=== PATIENT | male | born 1955 | race Caucasian/White ===

== ENCOUNTER 2016-09-18 21:45 | Inpatient (IN) | payer BC, MEDICAID ==
[~2016-09-18] VITALS: Ht 175.3 cm; Wt 79.8 kg
--- NOTE | 2016-09-18 22:28 | NUR ---
REC'D A 61 Y/O M BIB FAMILY FOR C/C OF GEN WEAKNESS AND DRY THROAT. PT STS "I KEEP DRINKING A LOT OF WATER BUT I JUST FEEL SO DRY." PT SPEAKS IN A SOFT VOICE. PT AMBULATES WITH STEADY GAIT. SPEAKS IN CLEAR AND COMPLETE SENTENCES, RESPIRATIONS EVEN AND UNLABORED. AAOX4 .NO ACUTE/RESP DISTRESS. MSE COMPLETED BY DR ESPINOZA. PT CHANGED INTO GOWN AND ATTACHED TO PRE SALES NETWORK ENGINEER.
--- NOTE | 2016-09-18 22:29 | NUR ---
LAB AT BEDSIDE.
--- NOTE | 2016-09-18 22:39 | NUR ---
XRAY AT BEDSIDE.
[2016-09-18 22:47] LABS: UA SPECIFIC GRAVITY <=1.005 (1.005-1.035); microscopic required? YES; urine erythrocyte TRACE (NEGATIVE)
[2016-09-18 22:49] LABS: BASOPHIL % 0.3 % (0-2); RED CELL DISTRIBUTION WIDTH 14.3 % (11.5-14.5)
[2016-09-18 22:51] LABS: PLATELET COUNT 45 x10^3mcL (130-400)
[2016-09-18 23:00] LABS: CALCIUM 9.5 mg/dL (8.5-10.1); CARBON DIOXIDE 29.2 mmol/L (21-32); CREATININE SERUM 1.6 mg/dL (0.7-1.3); POTASSIUM SERUM 4.6 mmol/L (3.5-5.1)
[2016-09-18 23:09] LABS: BILIRUBIN TOTAL 2.2 mg/dL (0.20-1.00); T4(THYROXINE) 7.4 ug/dL (4.7-13.3); TOTAL PROTEIN, SERUM 7.4 g/dL (6.4-8.2)
--- NOTE | 2016-09-18 23:11 | NUR ---
VERBAL ORDER FROM DR ESPINOZA TO HANG 1L NS FOR PTS HYPOTENSION. FLUIDS INFUSING WIDE OPEN TO R FOREARM AT THIS TIME.
[2016-09-18 23:13] LABS: CK-MB 0.9 ng/mL (0-3.6)
[2016-09-18 23:23] LABS: ALBUMIN 3.2 g/dL (3.4-5.0)
--- NOTE | 2016-09-18 23:41 | NUR ---
PT DOESN'T RECALL HTN MEDICATION. STS WILL BRING TOMORROW.
[2016-09-19] VITALS (8 sets, daily range): BP systolic 92–144; BP diastolic 53–77
--- NOTE | 2016-09-19 00:14 | NUR ---
REPORT GIVEN TO LIDIA
--- NOTE | 2016-09-19 00:50 | NUR ---
DR ALEXIS AT BEDSIDE.
[2016-09-19 01:17] LABS: MAGNESIUM 1.6 mg/dL (1.8-2.4); PHOSPHOROUS 3.5 mg/dL (2.5-4.9)
[2016-09-19 01:19] LABS: CHOLESTEROL 128 mg/dL (<200); CHOLESTEROL/HDL RATIO 5.8; HDL CHOLESTEROL 22 mg/dL (40-60); TRIGLYCERIDES 406 mg/dL (<150)
[2016-09-19 01:25] LABS: CALCIUM 8.9 mg/dL (8.5-10.1); CARBON DIOXIDE 23.8 mmol/L (21-32); CREATININE SERUM 1.4 mg/dL (0.7-1.3); POTASSIUM SERUM 4.3 mmol/L (3.5-5.1)
[2016-09-19 01:29] LABS: AMPHETAMINE QUAL UR NONE DETECTED (NEG <=1000)
--- NOTE | 2016-09-19 01:34 | NUR ---
RECEIVED PT FROM ED VIA [employer]. ORIENTED PT TO ROOM AND SURROUNDINGS. IV NOTED TO RFA PATENT AND INTACT. TELE [address] PT READING [address] INSTRUCTED PT ON THE USE OF CALL LIGHT FOR ASSISTANCE. ENDORSED PT TO PRIMARY NURSE LIDIA
--- NOTE | 2016-09-19 02:00 | NUR ---
RECEIVED PT FROM RESOURCE NURSE SURU. NO ACUTE DISTRESS. BLOOD SUGAR 548, DR ALEXIS INFORMED. NS BOLUS STARTED, RECEIVED ORDERS TO ADMINISTER INSULIN. WILL CONTINUE TO MONITOR.
--- NOTE | 2016-09-19 03:35 | NUR ---
BOLUS COMPLETED, BLOOD SUGAR 441. DR ALEXIS INFORMED. NO ACUTE DISTRESS. WILL CONTINUE TO MONITOR.
[2016-09-19 04:21] LABS: CALCIUM 8.7 mg/dL (8.5-10.1); CARBON DIOXIDE 23.8 mmol/L (21-32); CREATININE SERUM 1.3 mg/dL (0.7-1.3); POTASSIUM SERUM 3.7 mmol/L (3.5-5.1)
--- NOTE | 2016-09-19 05:56 | NUR ---
PT SLEPT PERIODICALLY THROUGHOUT NIGHT. NO ACUTE DISTRESS. ALL NEEDS MET AND ATTENDED TO. NO SIGNIFICANT CHANGES. IV PATENT AND INTACT. BED IN LOWEST POSITION, SIDE RAILS UP X2, SCDS IN PLACE, CALL LIGHT WITHIN REACH. WILL ENDORSE CARE TO ONCOMING NURSE.
--- NOTE | 2016-09-19 07:50 | NUR ---
RECEIVED PT IN BED ALERT AND ORIENTED X4. TELE #8, SB 48. DENIES CHEST PAIN. BREATHING EVEN AND UNLABORED ON RA, NO SOB, LUNG SOUNDS CLEAR. DENIES HEADACHE OR DIZZINESS. BP = 100/55. DENIES ABD PAIN OR N/V/D. VOIDS FREELY. AMBULATORY. SKIN CDI. REPORTS FATIGUE BUT STATES HE IS FEELING BETTER THAN LAST NIGHT. INSTRUCTED TO USE CALL LIGHT WHEN IN NEED OF ANY ASSISTANCE.
--- NOTE | 2016-09-19 12:00 | NUR ---
PT SEEN BY DR OSHEA AND HE SPOKE TO PT AND HIS .
[2016-09-19] MEDS ORDERED: NOR5 PO (12:03)
[2016-09-19] MEDS ORDERED: HYZAAR 100-251 EACH PO (12:03)
--- NOTE | 2016-09-19 16:02 | NUR ---
Initial Nutrition Assessment Dx: Severe Hyperglycemia PMHx: HTN, liver cirrhosis, hepatitis C (15 years, stopped taking Harvoni in August 2016) PSHx: None Labs: BG 449 H, BUN 20 H, Lactic Acid 2.2 H; (09/18) ALB 3.2 L, TBili 2.2 H, AST 44 H, Triglycerides 406 H, Amylase 132 H, Lipase 421 H, A1C 12.1 H, Ammonia 88 H Meds: Cephulac, Colace, D50%, Glucophage, Glucotrol, humulin R, mag-ox, Prilosec, NaCl IVF, theragran, zofran Current Diet Order: CCHO-60 gm PO Intakes: (09/19) L: 100% Ht: 68", 5' 8". Wt: 173 lb, 79 kg. BMI: 26 kg/m2 (Overweight) IBW: 154 lb, 70 kg. %IBW: 112%. UBW: 190 lb, 86 kg. Age: 61 Y/O M Food Allergies: None Skin: Intact. Mike 19. Edema: None noted GI: Abd soft, flat, active bowel sounds. Last BM 09/19. Pt found with hepatic encephalopathy ammonia 88 likely secondary to liver cirrhosis, new onset DM with A1C 12.1%, glucose 802 on admission per doctor's notes. Per [facility] Huddle reports, Dr. Delgado consulted. Pt was seen resting in bed with family at bedside. Pt reported good appetite, tolerated diet well, no issues. participated mostly in RD verbal interview. Problem with: N: None. V: None. D: None. C: None. Problems with: Chewing: None. Swallowing: None. Current Appetite: Good Recent Weight Change: -17 lb. % Weight Change: 8.9% weight loss within 1-2 months due to lack of appetite Vitamin/Supplement use: unable to specify vitamins, only reports pt eats vitamins and "joint juice" for joints Diet at Home: Regular; reports pt eats everything Physical Activity: None Education: RD provided nutrition education on DM to pt and . Pt mildly receptive, was very engaged and receptive. RD discussed portion control, carb counting, serving sizes, food/snack options, and handouts provided. DM class flyer was provided as well. acknowledged and verbalizes understanding of diet, will want to attend DM class, and attempt to start pt on the diet upon discharge. Estimated Nutritional Needs Based CBW 173 lb, 79 kg Energy: 6227-1704 kcal/day (25-30 kcal/kg for Maintenance) Protein: 79-95 gm/day (1-1.2 gm/kg for Liver Cirrhosis) Fluids: 2370 ml/day (30 ml/kg for Maintenance) or per doctor Nutrition Diagnosis 1. Altered nutrition related labs related to endocrine dysfunction, new onset DM as evidenced by elevated BG 449, A1C 12.1% 2. Unintentional weight loss related to lack of appetite as evidenced by 8.9% of weight loss within 1-2 months Intervention 1. Recommend CCHO-60 gm, 2 gm Na diet. 2. RD provided nutrition education to pt and family. 3. Follow up with outpatient RD/CDE upon discharge. Monitor/Evaluate Goal: PO intakes to meet at least 75% of estimated needs; Pt understand CCHO, 2 gm Na diet restrictions Monitor: PO intakes, tolerance to diet, labs, skin integrity, GI function F/U in 3-5 days as MODERATE risk (09/22-09/24)
--- NOTE | 2016-09-19 16:02 | NUR ---
1. Recommend CCHO-60 gm, 2 gm Na diet. 2. RD provided nutrition education to pt and family. 3. Follow up with outpatient RD/CDE upon discharge.
--- NOTE | 2016-09-19 17:23 | NUR ---
PT RESTING IN BED, NO COMPLAINTS OF PAIN OR DISCOMFORT. DISCHARGE WAS WITH PT AND PTS THIS AFTERNOON AND GAVE PT DM TEACING.
--- NOTE | 2016-09-19 19:30 | NUR ---
REC'D PT FROM DAY SHIFT NURSE. PT AAOX4, RESTING IN BED COMFORTABLY. DENIES ANY BOYD, DIZZINESS, PAIN OR DISCOMFORT AT THIS TIME. ON TELE # 8. NO SIGNS OF DISTRESS NOTED. BREATHING EVEN/UNLABORED. URINE LYTES/OSMO TO BE COLLECTED. CALL LIGHT WITHIN REACH, BED AT LOWEST POSITION. WILL CONTINUE TO MONITOR.
--- NOTE | 2016-09-20 02:31 | NUR ---
PT RESTING IN BED WITH EYES CLOSED. LAYING ON LEFT SIDE. NO SIGNS OF DISTRESS NOTED. BREATHING EVEN/UNLABORED. CALL LIGHT WITHIN REACH, BED AT LOWEST POSITION. WILL CONTINUE TO MONITOR.
--- NOTE | 2016-09-20 05:45 | NUR ---
TELE D/C PER ORDER. PT DENIES ANY CP, PALPITATIONS, PRESSURE, OR DIZZINESS.
--- NOTE | 2016-09-20 06:07 | NUR ---
PT RESTING IN BED COMFORTABLY. NO COMPLAINTS AT THIS TIME. BS 188, 3 UNITS REG INSULIN GIVEN. PT STARTED ON GLUCOTROL. NO SIGNS OF DISTRESS NOTED. REPORTS SLEEPING WELL LAST NIGHT AND FEELING BETTER. WILL COLLECT URINE LYTES/OSMOLALITYL ONCE PT URINATES THIS MORNING. CALL LIGHT WITHIN REACH, BED AT LOWEST POSITION. WILL ENDORSE TO DAY SHIFT NURSE.
[2016-09-20 06:09] LABS: BASOPHIL % 1.9 % (0-2); RED CELL DISTRIBUTION WIDTH 14.2 % (11.5-14.5)
[2016-09-20 06:49] LABS: CALCIUM 8.7 mg/dL (8.5-10.1); CHLORIDE SERUM 110 mmol/L (98-107); CREATININE SERUM 1.2 mg/dL (0.7-1.3); GFR1 > 60 mL/min; GLUCOSE SERUM 204 mg/dL (74-106); MAGNESIUM 1.5 mg/dL (1.8-2.4); PHOSPHOROUS 2.8 mg/dL (2.5-4.9); POTASSIUM SERUM 4.4 mmol/L (3.5-5.1); SODIUM SERUM 142 mmol/L (136-145)
[2016-09-20 06:54] VITALS: BP 116/63; BP 149/93
--- NOTE | 2016-09-20 07:51 | NUR ---
RECEIVED PT IN BED ALERT AND ORIENTED X4. DENIES ANY PAIN OR DISCOMFORT. BREATHING EVEN AND UNLABORED ON RA. DENIES ANY GI UPSET. VOIDS FREELY. AMBULATORY. NO EDEMA NOTED. SKIN CDI. INSTRUCTED TO USE CALL LIGHT WHEN IN NEED OF ANY ASSISTANCE.
[2016-09-20 09:53] VITALS: BP 118/66
[2016-09-20 10:03] LABS: PLATELET COUNT 23 x10^3mcL (130-400)
[2016-09-20] MEDS ORDERED: BG MC (11:36)
[2016-09-20] MEDS ORDERED: APAP/HYDROCODON1 T13 PO (11:36)
[2016-09-20] MEDS ORDERED: COL100 PO (11:36)
[2016-09-20] MEDS ORDERED: METFORMIN HCL1000 MG PO (11:37)
[2016-09-20] MEDS ORDERED: GLU5 PO (11:37)
[2016-09-20] MEDS ORDERED: LEVEMIR100 U/M1 SQ (11:37)
[2016-09-20] MEDS ORDERED: THERA TABS1 TAB PO (11:38)
[2016-09-20] MEDS ORDERED: LACTULOSE10 GM/152 PO (11:46)
--- NOTE | 2016-09-20 12:32 | NUR ---
PT COMPLAINING OF NAUSEA. ZOFRAN IVP GIVEN.
--- NOTE | 2016-09-20 14:25 | NUR ---
PT STILL COMPLAINING OF NAUSEA, STATES ZOFRAN DIDNT HELP. DR GAGNON MADE AWARE AND PHENERGAN IVP GIVEN ORDERED.
--- NOTE | 2016-09-20 17:02 | NUR ---
PT STILL COMPLAINING OF NAUSEA AND DIZZINESS. DID NOT EAT LUNCH AND STATES HE DOESNT HAVE APPETITE FOR DINNER. PTS CONCERNED ABOUT PT NOT EATING AND TAKING A LOT OF DIABETES MEDICATIONS. BLOOD SUGAR = 241. DR GAGNON MADE AWARE. WILL GIVE REGLAN ORDERED. PER DR GAGNON, OK TO HOLD REGULAR INSULIN AND JUST GIVE PO MEDS IF PT IS NO LONGER NAUSEOUS.
[2016-09-20 18:18] VITALS: BP 156/79
--- NOTE | 2016-09-20 19:20 | NUR ---
REC'D PT FROM DAY SHIFT NURSE. FAMILY AT BEDSIDE. PT RESTING IN BED, FEELING FATIGUED. DENIES DIZZINESS, NAUSEA, OR PAIN AT THIS TIME. C/O WEAKNESS AND URINARY FREQUENCY. PT HAD EPISODE OF BEING UNABLE TO HOLD URINE, VOIDED ON SELF AND FLOOR. CHANGED GOWN AND LINENS. AMBULATORY. NO SIGNS OF DISTRESS NOTED. BREATHING EVEN/UNLABORED. CALL LIGHT WITHIN REACH, BED AT LOWEST POSITION. WILL CONTINUE TO MONITOR.
--- NOTE | 2016-09-20 20:55 | NUR ---
TEMP 101.6. PT C/O WEAKNESS. DENIES NAUSEA OR PAIN AT THIS TIME. TYLENOL GIVEN PER ORDER. COOLING MEASURES INITIATED- AC TURNED ON, BLANKETS REMOVED, COLD COMPRESS APPLIED. WILL CONTINUE TO MONITOR.
[2016-09-20 21:34] VITALS: BP 112/53
--- NOTE | 2016-09-20 22:45 | NUR ---
RECHECKED TEMP 99.6. PT RESTING IN BED WITH EYES CLOSED. COLD COMPRESS IN PLACE, AC ON, AND BLANKETS LOWERED. WILL CONTINUE TO MONITOR.
--- NOTE | 2016-09-21 02:35 | NUR ---
TEMP 98.0. PT RESTING IN BED WITH EYES CLOSED. NO SIGNS OF DISTRESS NOTED. BREATHING EVEN/UNLABORED. CALL LIGHT WITHIN REACH, BED AT LOWEST POSITION. WILL CONTINUE TO MONITOR.
--- NOTE | 2016-09-21 06:16 | NUR ---
PT RESTING COMFORTABLY IN BED. AFEBRILE. DENIES DIZZINESS, NAUSEA, OR ANY DISCOMFORT. REPORTS NOT VOIDING FREQUENTLY TONIGHT AND FEELING BETTER. BS 198, 3 UNITS REG INSULIN GIVEN. NO SIGNS OF DISTRESS NOTED. BREATHING EVEN/UNLABORED. NO SIGNIFICANT CHANGES DURING SHIFT. WILL ENDORSE TO DAY SHIFT NURSE.
[2016-09-21 06:35] VITALS: BP 106/58
[2016-09-21 06:41] LABS: CARBON DIOXIDE 22.7 mmol/L (21-32); CREATININE SERUM 1.6 mg/dL (0.7-1.3); MAGNESIUM 1.6 mg/dL (1.8-2.4); PHOSPHOROUS 3.7 mg/dL (2.5-4.9); POTASSIUM SERUM 4.4 mmol/L (3.5-5.1)
[2016-09-21 07:00] LABS: BASOPHIL % 0 % (0-2); RED CELL DISTRIBUTION WIDTH 15.3 % (11.5-14.5)
--- NOTE | 2016-09-21 07:30 | NUR ---
PATIENT IS IN BED AWAKE ALERT AND ORIENTED. DENIES ANY PAIN OR DISCOMOFRT. HL PATENT, FLUSHED WELL. RESP EVEN AND UNLABORED, LUNGS CLEAR ON ROOM AIR. AMBULATES AD MALISSA. SKIN INTACT. ABD SOFT BOWEL SOUNDS ACTIVE. NO EDEMA NOTED, SCD'S IN PLACE. WILL CONTINUE TO MONITOR.
--- NOTE | 2016-09-21 08:10 | NUR ---
DR GARCIA AND MEDICAL TEAM INTO SEE PAIENT AND DISCUSS PLAN OF CARE.
[2016-09-21 09:19] VITALS: BP 103/52
[2016-09-21 12:11] LABS: PLATELET COUNT 24 x10^3mcL (130-400)
--- NOTE | 2016-09-21 12:20 | NUR ---
PATIENT'S MG LEVEL 1.6 THIS AM. MG ROSY GIVEN BY DARLYN COELLO ORDERED. PATIENT HAS BEEN OOB AMBULTING IN THE HALLWAYS AND USING I.S. INSTRUCTED. SITTING UP IN BED WATCHING TV AT THIS TIME.
--- NOTE | 2016-09-21 18:10 | NUR ---
PATIENT REMAINS IN BED WITH SPOUSE AT BEDSIDE. PER PATIENT HE IS HAVING LOOSE STOOLS FROM THE LACTULOSE. HL PATENT. AMBULATES IN THE HALLWAYS AD MALISSA. USING I.S. INTRUCTED. NO C/O PAIN THIS SHIFT. WILL CONTINUE TO MONITOR.
[2016-09-21 18:41] VITALS: BP 113/60
--- NOTE | 2016-09-21 20:01 | NUR ---
PT CURRENTLY RESTING IN BED, IN NO ACUTE DISTRESS. A/O X4. NO TELE, MED/SURG. DENIES CHEST PAIN. PULSES PALPABLE IN ALL EXTREMITIES, NO EDEMA NOTED. LUNG SOUNDS CTA BILATERALLY. BOWEL SOUNDS ACTIVE, LAST BM 09/21/16, DIARRHEA. VOIDING WELL. MILD GENERALIZED WEAKNESS NOTED. SKIN INTACT. DENIES PAIN AT THIS TIME. IV PATENT AND INTACT. BED IN LOWEST POSITION, SIDE RAILS UP X2, SCDS IN PLACE, CALL LIGHT WITHIN REACH. WILL CONTINUE TO MONITOR.
[2016-09-21 21:29] VITALS: BP 107/53
--- NOTE | 2016-09-22 00:17 | NUR ---
PT CURRENTLY RESTING IN BED, NO ACUTE DISTRESS. TEMP 98.4 POST COOLING MEASURES. WILL CONTINUE TO MONITOR.
[2016-09-22 05:54] VITALS: BP 121/68
--- NOTE | 2016-09-22 06:09 | NUR ---
PT SLEPT PERIODICALLY THROUGHOUT NIGHT. NO ACUTE DISTRESS. ALL NEEDS MET AND ATTENDED TO. NO SIGNIFICANT CHANGES. MEDICATED PAIN PER EMAR. IV PATENT AND INTACT. BED IN LOWEST POSITION, SIDE RAILS UP X2, SCDS IN PLACE, CALL LIGHT WITHIN REACH. WILL ENDORSE CARE TO ONCOMING NURSE.
[2016-09-22 06:28] LABS: CALCIUM 9.1 mg/dL (8.5-10.1); CARBON DIOXIDE 23.5 mmol/L (21-32); CHLORIDE SERUM 107 mmol/L (98-107); CREATININE SERUM 1.2 mg/dL (0.7-1.3); GFR1 > 60 mL/min; GLUCOSE SERUM 169 mg/dL (74-106); MAGNESIUM 1.9 mg/dL (1.8-2.4); PHOSPHOROUS 2.5 mg/dL (2.5-4.9); POTASSIUM SERUM 4.1 mmol/L (3.5-5.1); SODIUM SERUM 139 mmol/L (136-145)
[2016-09-22 06:56] LABS: BASOPHIL % 0.1 % (0-2)
[2016-09-22 07:00] LABS: RED CELL DISTRIBUTION WIDTH 15.5 % (11.5-14.5)
[2016-09-22 07:02] LABS: PLATELET COUNT 18 x10^3mcL (130-400)
--- NOTE | 2016-09-22 07:30 | NUR ---
RECEIVED PT IN BED ALERT AND ORIENTED X4. DENIES ANY PAIN OR DISCOMFORT. BREATHING EVEN AND UNLABORED ON RA, NO SOB. DENIES ANY GI UPSET. VOIDS FREELY. AMBULATORY. AFEBRILE. SKIN CDI. INSTRUCTED TO USE CALL LIGHT WHEN IN NEED OF ANY ASSISTANCE.
[2016-09-22 09:26] VITALS: BP 126/67
--- NOTE | 2016-09-22 12:00 | NUR ---
DR GAGNON AWARE OF CRITICAL LAB, PLT = 18.
--- NOTE | 2016-09-22 17:46 | NUR ---
PT CONTINUES TO REPORT WATERY STOOLS. PT ALSO REPORTS NOSE BLEED WHEN HE BLEW HIS NOSE. DR GAGNON AWARE AND SPEAKING TO PT AND HIS NOW.
--- NOTE | 2016-09-22 19:43 | NUR ---
PT CURRENTLY RESTING IN BED, IN NO ACUTE DISTRESS. A/O X4. NO TELE, MED/SURG, DENIES CHEST PAIN. PULSES PALPABLE IN ALL EXTREMITIES, NO EDEMA NOTED. LUNG SOUNDS CTA BILATERALLY. BOWEL SOUNDS ACTIVE, LAST BM 09/22/16, DIARRHEA RELATED TO LACTULOSE. VOIDING WELL. AMBULATORY. SKIN INTACT. DENIES PAIN AT THIS TIME. IV PATENT AND INTACT. BED IN LOWEST POSITION, SIDE RAILS UP X2, SCDS IN PLACE, CALL LIGHT WITHIN REACH. WILL CONTINUE TO MONITOR.
[2016-09-22 21:30] VITALS: BP 125/59
[2016-09-23 05:51] VITALS: BP 137/66
[2016-09-23 07:08] LABS: CALCIUM 9.6 mg/dL (8.5-10.1); CARBON DIOXIDE 19.6 mmol/L (21-32); CHLORIDE SERUM 108 mmol/L (98-107); GFR1 > 60 mL/min; GLUCOSE SERUM 76 mg/dL (74-106); MAGNESIUM 1.6 mg/dL (1.8-2.4); PHOSPHOROUS 2.5 mg/dL (2.5-4.9); POTASSIUM SERUM 3.4 mmol/L (3.5-5.1); SODIUM SERUM 140 mmol/L (136-145)
[2016-09-23 07:22] LABS: BASOPHIL % 0 % (0-2); RED CELL DISTRIBUTION WIDTH 15.2 % (11.5-14.5)
[2016-09-23 07:24] LABS: PLATELET COUNT 28 x10^3mcL (130-400)
--- NOTE | 2016-09-23 10:00 | NUR ---
DR GAGNON CAME AND SAW PT DISCUSSED DC INSTRUCTIONS TO PT AND AT BEDSIDE,INCLUDING 'S APPT.
--- NOTE | 2016-09-23 10:13 | NUR ---
INSTRUCTIONS RENDERED TO PT AND REGARDING BLOOD SUGAR CHECKS AND LEVEMIR INSULIN DRAWING AND INJECTING TO SELF ON PARTICULAR FAT SITES. ALSO REGARDING ORAL DM MEDS,SCHED,AND S/S OF LOW BLD SUGAR PARTICULARLY. PT AND STATED UNDERSTANDING.
[2016-09-23 10:34] VITALS: BP 130/71
[2016-09-23 10:54] VITALS: BP 130/71
--- NOTE | 2016-09-23 11:00 | NUR ---
PT'S CONDITION STABLE,DENIES PAIN,VITALS' NORMAL,DC REINSTRUCTIONS RENDERED INCLUDING TO FOLLOW UP W/ PCP AND CONSULTS. SHAZIA MELO'D,PRESCRIPTION NOTE ENDORSED. WHEELED DOWN BY GROUP FITNESS ASSISTANT DEPARTMENT HEAD.
== END 2016-09-23 11:46 | disposition home or self-care (01) | DRG 432 ==
LOC: ED 21:45 → DU 23:50 → MU 23:50 → DU 09-19 01:25 → MU 09-20 05:55
PROVIDERS: Emergency Medicine; Family Medicine; ADMIT Family Medicine
DX: K70.30 Alcoholic cirrhosis of liver without ascites (principal); K85.90 Acute pancreatitis without necrosis or infection, unspecified; N17.0 Acute kidney failure with tubular necrosis; I48.92 Unspecified atrial flutter; E44.0 Moderate protein-calorie malnutrition; E87.1 Hypo-osmolality and hyponatremia; D68.69 Other thrombophilia; K72.90 Hepatic failure, unspecified without coma; E11.65 Type 2 diabetes mellitus with hyperglycemia; F10.20 Alcohol dependence, uncomplicated; E83.42 Hypomagnesemia; B18.2 Chronic viral hepatitis C; I10 Essential (primary) hypertension; E80.6 Other disorders of bilirubin metabolism; D69.59 Other secondary thrombocytopenia; F14.21 Cocaine dependence, in remission; F11.21 Opioid dependence, in remission; Z68.26 Body mass index [BMI] 26.0-26.9, adult; Z87.891 Personal history of nicotine dependence
CPT/HCPCS: 80307; 82962; 83880; 94150; J1815; J2405; J2550; J2765; J3475; J7030; Q0092

== ENCOUNTER 2017-02-05 12:18 | Inpatient (IN) | payer OTHER, MEDICAID ==
[~2017-02-05] VITALS: Ht 175.3 cm; Wt 83.0 kg
[~2017-02-05 12:18] MED LIST: APAP/HYDROCODON1 T13 PO; BG MC; COL100 PO; GLU5 PO; HYZAAR 100-251 EACH PO; LACTULOSE10 GM/152 PO; LEVEMIR100 U/M1 SQ; METFORMIN HCL1000 MG PO; NOR5 PO; THERA TABS1 TAB PO
[2017-02-05 13:30] LABS: CARBON DIOXIDE 24.4 mmol/L (21-32); CHLORIDE SERUM 107 mmol/L (98-107); CREATININE SERUM 0.9 mg/dL (0.7-1.3); GFR1 > 60 mL/min; GLUCOSE SERUM 122 mg/dL (74-106); SODIUM SERUM 141 mmol/L (136-145)
[2017-02-05 13:35] LABS: ALBUMIN 2.8 g/dL (3.4-5.0); ALKALINE PHOSPHATASE 113 U/L (46-116); ALT/SGPT 50 U/L (16-63); AST/SGOT 55 U/L (15-37); BILIRUBIN TOTAL 2.7 mg/dL (0.20-1.00); TOTAL PROTEIN, SERUM 6.4 g/dL (6.4-8.2)
--- NOTE | 2017-02-05 13:40 | NUR ---
PT WENT TO AND FROM CT WITHOUT INCIDENCE VIA WHEELCHAIR.
--- NOTE | 2017-02-05 13:40 | NUR ---
PT IS A 61 YEAR OLD MALE WHO PRESENTS TO THE ED TO BE EVALUATED FOR THE COMPLAINT OF HAVING THE PT STATES, "HOT AND COLD FLASHES THAT RUN FROM THE THE BACK OF MY NECK ALL THE WAY TO THE TOP OF MY HEAD." PT DOES NOT HAVE CVA SYMPTOMS.
[2017-02-05 13:57] LABS: PLATELET COUNT 27 x10^3mcL (130-400)
[2017-02-05 14:16] LABS: BAND NEUTROPHIL 12 % (0-10); BASOPHIL 0 % (0-2); MONOCYTE 7 % (0-7); SEGMENTED NEUTROPHILS 59 % (37-75); rbc morphology (normal/abnorm) ABNORMAL (NORMAL)
[2017-02-05 14:17] LABS: tear drop cell (dacryocyte) 1+
--- NOTE | 2017-02-05 15:19 | NUR ---
PT RESTING IN BED WATCHING TV. NO S/S OF DISTRESS NOTED AT THIS TIME. PT ASKED ABOUT ADMISSION, WILL SPEAK TO DR ABOUT UPDATED PLAN OF CARE.
[2017-02-05] MEDS ORDERED: METFORMIN HCL1000 MG PO (16:04)
[2017-02-05] MEDS ORDERED: MULTI-VITAMINS1 TAB PO (16:05)
[2017-02-05] MEDS ORDERED: INVOKANA100 MG PO (16:06)
[2017-02-05 16:30] LABS: CHOLESTEROL/HDL RATIO 1.7; MAGNESIUM 1.5 mg/dL (1.8-2.4); PHOSPHOROUS 3.1 mg/dL (2.5-4.9)
[2017-02-05 16:38] LABS: FREE T4 1.13 ng/dL (0.76-1.46); FREE THYROXINE INDEX 2.6 ug/dL (1.4-4.5); T4(THYROXINE) 6.8 ug/dL (4.7-13.3)
--- NOTE | 2017-02-05 16:49 | NUR ---
REPORT CALLED TO ANGELICA CHAPA RN TO ASSUME CARE FOR THIS PT POST TRANSFER FROM ED TO TELE UNIT.
[2017-02-05 17:25] VITALS: BP 135/98
--- NOTE | 2017-02-05 17:30 | NUR ---
REC'D AAOX4, SPEECH CLEAR, DENIES DIZZINES AND H/A, DENIES PAIN. C/O HOT/COLD SENSATION "WAVE LIKE FEELING STARTING FROM NECK MOVING UP HEAD". DENIES NV. ON RA, NO SOB NOTED. ATTACHED TELE 9. SB. AMBULATORY WITH STEADY GAIT. AT THE BEDSIDE. IV ON LAC WNL. ORIENTED TO ROOM AND SURROUNDINGS. CALL LIGHT WITHIN REACH, PROVIDED REPORT TO ANGELICA COELLO FOR CONTINUITY OF CARE.
[2017-02-05 17:42] LABS: T3 TOTAL 0.69 ng/mL
[2017-02-05 17:45] VITALS: BP 137/70
--- NOTE | 2017-02-05 18:57 | NUR ---
PT IN BED, RESTING COMFORTABLY, WAITING FOR DINNER TO ARRIVE. JUST LEFT TO GET DINNER OUTSIDE. NO RESPIRATORY DISTRESS, PAIN, OR DISCOMFORT NOTED. WILL ENDORSE TO NOC SHIFT.
--- NOTE | 2017-02-05 19:30 | NUR ---
RECEIVED Pt AAOX4 CALM AND COOPERATIVE WITH CARE. DENIES ANY CHEST PAIN, DENIES ANY RECENT HOT/COLD FLASHES. LUNG SOUNDS ARE CTA BILATERALLY. ACTIVE BOWEL SOUNDS X4 QUADS. DENIES ANY ABD DISCOMFORT. Pt IS CURRENTLY EATING DINNER AND TOLERAING WELL. SKIN IS INTACT. IV SITE TO LAC IS PATENT. VOIDS FREELY. MOVES ALL EXTREMITIES, NO EDEMA NOTED. SCD'S AT BEDSIDE. Pt RE-ORIENTED TO ROOM AND CALL LIGHT SYSTEM WITHIN EASY REACH. WILL CONTINUE TO MONITOR.
--- NOTE | 2017-02-05 20:00 | NUR ---
PATIENT'S PLAN OF CARE WAS DISCUSSED AND REVIEWED WITH MONITOR TECHNICIAN: ROBERT PERKINS.
[2017-02-05 20:50] VITALS: BP 117/59
--- NOTE | 2017-02-05 22:10 | NUR ---
MADE AWARE OF WBC 2.5 REQUESTED NEUTROPENIC PRECAUTIONS IF CONSIDERED INDICATED.
--- NOTE | 2017-02-06 01:36 | NUR ---
Pt RESTING QUIETLY, NO DISTRESS NOTED. WILL CONTINUE TO MONITOR.
--- NOTE | 2017-02-06 05:13 | NUR ---
NO SIGNIFICANT CHANGES NOTED OVER NIGHT. MAGNESIUM IV INFUSED ORDERED AND TOLERATED WELL. NO FURTHER REPORTS OF HOT OR COLD FLASHES. Pt CONTIUES TO REST QUIETLY. WILL CONTINUE TO MONITOR.
--- NOTE | 2017-02-06 05:58 | NUR ---
I HAVE REVIEWED THE DATA COLLECTION BY RULA (NAME): ROBERT PERKINS ENTERED ON (DATE/TIME): I CONCUR WITH THE DATA AND ANY EXCEPTIONS OR COMMENTS ARE LISTED BELOW:
[2017-02-06 05:59] VITALS: BP 126/63
--- NOTE | 2017-02-06 06:31 | NUR ---
Pt MOVED TO ROOM 205A FOR SAFETY ISSUE. (NEUTROPENIC PRECAUTIONS, PER CHARGE NURSE REQUEST).
[2017-02-06 07:20] LABS: RED CELL DISTRIBUTION WIDTH 17.7 % (11.5-14.5)
--- NOTE | 2017-02-06 07:20 | NUR ---
RECEIVED PT IN BED, RESTING COMFORTABLY. A/A/O X 4, CALM, COOPERATIVE. ON TELE # 9, SHOWING SB WITH HR 52, ASYMPTOMATIC AT THIS TIME. KEEGAN RADIAL AND PEDAL PULSES PRESENT, NO EDEMA, CAP REFILL < 3 SECS. BUL / BLL CLEAR, CHEST RISING EVENLY, SPO2 98% ON R/A. ABD ROUND, SOFT, NON-TENDER, NORMOACTIVE BOWEL SOUNDS X 4 QUADS. LAST BM 02/04/17. VOIDS FREELY, NO DYSURIA. AMBULATES WITHOUT GAIT OR BALANCE IMPAIRMENT. SKIN INTACT. DENIES PAIN AT THIS TIME. IV SITE AT [facility], RUNNING 120 ML/HR. SIDE RAILS UP X 2, BED IN LOW POSITION, CALL LIGHT WITHIN REACH. WILL CONTINUE TO MONITOR.
[2017-02-06 07:25] LABS: PLATELET COUNT 26 x10^3mcL (130-400)
[2017-02-06 07:32] LABS: ALKALINE PHOSPHATASE 81 U/L (46-116); ALT/SGPT 53 U/L (16-63); AST/SGOT 60 U/L (15-37); BILIRUBIN TOTAL 2.6 mg/dL (0.20-1.00); CARBON DIOXIDE 23.6 mmol/L (21-32); CHLORIDE SERUM 108 mmol/L (98-107); CREATININE SERUM 0.8 mg/dL (0.7-1.3); GFR1 > 60 mL/min; GLUCOSE SERUM 109 mg/dL (74-106); POTASSIUM SERUM 4.1 mmol/L (3.5-5.1); SODIUM SERUM 140 mmol/L (136-145); TOTAL PROTEIN, SERUM 6.3 g/dL (6.4-8.2)
[2017-02-06 07:34] LABS: ALBUMIN 2.7 g/dL (3.4-5.0)
--- NOTE | 2017-02-06 08:17 | NUR ---
DR ESCOBEDO, RESIDENTS, CHARGE NURSE, AND ASSIGNED NURSE CAME IN TO SEE PT; MD DISCUSSED CARE PLAN FOR PT; ALL QUESTIONS ANSWERED; PT VERBALIZED UNDERSTANDING.
--- NOTE | 2017-02-06 09:00 | NUR ---
PT WAS PUT ON NEUTROPENIC PRECAUTIONS; EXPLAINED TO PT WHY, AND PT VERBALIZED UNDERSTANDING.
[2017-02-06 10:17] VITALS: BP 131/56
[2017-02-06 10:21] LABS: BAND NEUTROPHIL 10 % (0-10); BASOPHIL 0 % (0-2); MONOCYTE 9 % (0-7); SEGMENTED NEUTROPHILS 59 % (37-75)
[2017-02-06 10:22] LABS: rbc morphology (normal/abnorm) ABNORMAL (NORMAL)
[2017-02-06 10:24] LABS: tear drop cell (dacryocyte) 1+
--- NOTE | 2017-02-06 10:40 | NUR ---
PT IN BED, TALKING TO HIS ON HIS CELL PHONE. NO RESPIRATORY DISTRESS, PAIN, OR DISCOMFORT NOTED. WILL CONTINUE TO MONITOR.
--- NOTE | 2017-02-06 13:00 | NUR ---
PT IN BED, BY BEDSIDE. PT STATES THAT HE FEELS THAT THE LACTULOSE IS WORKING FOR HIM AEB "FEELING BETTER". NO ABD PAIN OR DISCOMFORT. WILL CONTINUE TO MONITOR.
[2017-02-06 13:23] VITALS: BP 128/72
--- NOTE | 2017-02-06 14:53 | NUR ---
Initial Nutrition Assessment Dx: Hepatic Encephalopathy PMHx: Cirrhosis, Hepatitis C (cured), HTN, DM II, Esophageal varices PSHx: [place] teeth extraction Labs: Cl 108H, BG 109H, Alb 2.7L, Glob 3.6H, TBili 2.6H, AST 60H, LDH 212H, Amylas 148H, Lipase 423H, Magnes 1.5L, A1C 5.3, Ammonia 108H, WBC 1.9L, H/H 10.7/32L Meds: Lactulose, D10%, Glucophage, Humulin, Nitrostat, Prilosec, NS IV, Theragran, Zofran Diet: CCHO 60g, Cardiac PO intake: (02/06) B: 100% Ht: 69in Wt: (02/05) 183lb admit wt discrepancy possibly due to bed equipment BMI: 27kg/m2 (Overweight) Weight history: (02/05) Bed scale 165lb, (02/06) Bed scale: 168lb IBW: 160lb %IBW: 114% UBW: 165lb now, 180lb 6months ago (per pt) Age: 61 y/o M Food Allergies: None Skin: Mike 22 Edema: Moderate ascites, per pt has not noticed fluid retention GI: Last BM 02/06 Pt came in with hepatic encephalopathy NH3 99 likely secondary to cirrhosis of liver, last alcoholic drink was in 1988, pt takes lactulose, metformin BID, Invocana daily, per H&P notes. it intern visited pt who was alert, having lunch, and with family member by bedside, pt stated appetite is good. Pt's weight was retaken by agriculture internship due to pt stating visited box liner last week and weight was 163lb. Pt reports usual body weight as of 6 months ago was 180lb, usual weight now is 165lb. Problems with: N: No V: No D: No C: No Problems with: Chewing: No Swallowing: No Current Appetite: Good Recent wt change: -15 lb (6 months) %wt change: 7% weight loss Vitamin/Supplement use: Multivitamin x1 per day Diet at home: Diabetic diet, lean protein, vegetables Physical activity: Sedentary, states feet hurt and gets tired easily Education: it intern educated pt on a low sodium diet for people with cirrhosis. Pt agreeable to information and stated he avoids eating out and avoids drinking sweetened beverages. Cane Cutter answered pt's 's concern about sugars recommended on cirrhosis diet, discussed tailoring handout information with DM diet guidelines already being followed at home. Cane Cutter commended pt and his on following DM diet, pt was recommended to speak with MD about protein intake at discharge and encouraged pt to walk with breaks in between. Estimated Nutritional Needs Based on: [place] Body Weight 160lb, 72kg Energy: 2181-2520kcal/d (30-35 kcal/kg for Hepatic Encephalopathy) Protein: 57-72g/d (0.8-1.0g/kg for Acute Hepatic Encephalopathy) Fluid: 1800ml/d (25ml/kg) per doctor due to mild ascites Nutrition Diagnosis: Altered nutrition related lab values related to liver dysfunction as evidenced by LDH 212, Ammonia 108, Tbili 2.6 Intervention: 1. Recommend CCHO, 75g, Cardiac diet. Monitor/ Evaluate: Goal: PO intake to meet at least 75% of estimated needs Monitor: PO intake, Labs (BG, Ammonia), GI function F/U in 3-5 days as MODERATE risk 02/09-02/11
--- NOTE | 2017-02-06 14:54 | NUR ---
1. Recommend CCHO, 75g, Cardiac diet.
[2017-02-06 17:22] VITALS: BP 136/72
--- NOTE | 2017-02-06 18:57 | NUR ---
PT IN BED, BY BEDSIDE, HAVING CONVERSATION. ASKED FOR CUP OF TEA; GIVEN ONE AFTER PT WAS ASSESSED FOR END OF DAY. NO RESPIRATORY DISTRESS, PAIN, OR DISCOMFORT NOTED. WILL ENDORSE TO NOC SHIFT.
--- NOTE | 2017-02-06 19:01 | NUR ---
PT C/O LAC IV SITE BOTHERING HIM. INSERTED NEW 20G 1.25" IV CATH TO LFA, GOOD BLOOD RETURN, GOOD FLUSHING. REMOVED 20G 1.25" IV CATH FROM LAC, TIP INTACT, SITE NO BLEEDING, REDNESS, PAIN, OR DISCOMFORT.
--- NOTE | 2017-02-06 20:01 | NUR ---
Awake and verbally responsive. No resp.distress noted on room air. Denies congestion. Denies pain. No n/v. Will cont.to monitor. Call light within reach.
[2017-02-06 21:34] VITALS: BP 121/81
[2017-02-06 21:36] VITALS: BP 133/70
[2017-02-06 23:24] LABS: UA SPECIFIC GRAVITY 1.025 (1.005-1.035); microscopic required? YES; urine erythrocyte 1+ (NEGATIVE)
[2017-02-06 23:54] LABS: AMPHETAMINE QUAL UR NONE DETECTED (NEG <=1000)
--- NOTE | 2017-02-07 04:04 | NUR ---
Afebrile. No significant change in condition noted. Denies chest pain. No neurological deficits noted. Safety maintained.
[2017-02-07 05:11] VITALS: BP 134/69
--- NOTE | 2017-02-07 07:30 | NUR ---
RECEIVED PT IN BED, RESTING COMFORTABLY. A/A/O X 4, CALM, COOPERATIVE. ON TELE # 9, SHOWING SR WITH HR 60. KEEGAN RADIAL AND PEDAL PULSES PRESENT, NO EDEME, CAP REFILL < 3 SECS. BUL / BLL CLEAR, CHEST RISING EVENLY, ON R/A, SPO2 98%. ABD MILDLY DISTENDED, SOFT, NON-TENDER, NORMOACTIVE BOWEL SOUNDS X 4 QUADS. LAST BM 02/07/17, SOFT. VOIDS FREELY, NO DYSURIA. AMBULATES WITHOUT GAIT OR BALANCE IMPAIRMENT. SKIN INTACT. DENIES PAIN AT THIS TIME. IV SITE AT [facility], RUNNING NS 120 ML/HR. BED IN LOW POSITION, SIDE RAILS UP X 2, CALL LIGHT WITHIN REACH. WILL CONTINUE TO MONITOR.
--- NOTE | 2017-02-07 08:33 | NUR ---
DR HOWELL, RESIDENTS, CHARGE NURSE, AND ASSIGNED NURSE CAME IN TO SEE PT; MD DISCUSSED CARE PLAN FOR PT TODAY, INCLUDING D/C HOME TODAY; ALL QUESTIONS ANSWERED, PT VERBALIZED UNDERSTANDING.
[2017-02-07 08:41] LABS: ALBUMIN 2.8 g/dL (3.4-5.0); ALKALINE PHOSPHATASE 92 U/L (46-116); ALT/SGPT 55 U/L (16-63); AMYLASE 109 U/L (25-115); AST/SGOT 60 U/L (15-37); BILIRUBIN TOTAL 1.9 mg/dL (0.20-1.00); CALCIUM 8.8 mg/dL (8.5-10.1); CARBON DIOXIDE 22.9 mmol/L (21-32); CHLORIDE SERUM 109 mmol/L (98-107); CREATININE SERUM 0.8 mg/dL (0.7-1.3); GFR1 > 60 mL/min; GLUCOSE SERUM 124 mg/dL (74-106); LIPASE 250 IU/L (73-393); MAGNESIUM 1.5 mg/dL (1.8-2.4); SODIUM SERUM 140 mmol/L (136-145); TOTAL PROTEIN, SERUM 6.3 g/dL (6.4-8.2)
[2017-02-07 09:30] VITALS: BP 129/74
--- NOTE | 2017-02-07 10:30 | NUR ---
PT IN BED, WATCHING TV, BY BEDSIDE. NO RESPIRATORY DISTRESS, PAIN, OR DISCOMFORT NOTED. WILL CONTINUE TO MONITOR.
[2017-02-07 13:40] VITALS: BP 138/68
[2017-02-07] MEDS ORDERED: LAC30L PO (14:44)
--- NOTE | 2017-02-07 15:10 | NUR ---
DISCHARGE PACKET WAS DISCUSSED WITH PT; INCLUDED CURRENT STAY, MEDICATIONS, PROCEDURES, LAB RESULTS, AND TEACHINGS ETOH USE DISORDER, HYPOKALEMIA, DM2, AND HTN. ALL QUESTIONS ANSWERED, PT VERBALIZED UNDERSTANDING. ALL DISCHARGE FORMS SIGNED BY PT.
[2017-02-07 15:13] VITALS: BP 138/68
--- NOTE | 2017-02-07 15:58 | NUR ---
PT GIVEN THE DISCHARGE PACKET, BY BEDSIDE. DISCUSSED WITH PT RE: CURRENT STAY, MEDICATIONS, DIET, EXERCISE, TEACHINGS RE: DM2, HEPATIC ENCEPHALOPATHY, LACTULOSE. ALL QUESTIONS WERE ANSWERED; PT AND VERBALIZED UNDERSTANDING.
--- NOTE | 2017-02-07 16:00 | NUR ---
ALL FORMS IN DISCHARGE PACKET SIGNED BY PT.
--- NOTE | 2017-02-07 17:55 | NUR ---
PT LEFT UNIT VIA W/C, ACCOMPANIED BY NIGHT MANAGER AND . ALL ID BANDS WERE REMOVED. A/A/O X 4, NO RESPIRATORY DISTRESS, PAIN, OR DISCOMFORT. PT WAS PICKED UP BY PRIVATE AUTO FROM [facility]OB[facility].
== END 2017-02-07 17:56 | disposition home or self-care (01) | DRG 441 ==
LOC: ED 12:18 → DU 14:58
PROVIDERS: Emergency Medicine; ADMIT Family Medicine
DX: K72.90 Hepatic failure, unspecified without coma (principal); E43 Unspecified severe protein-calorie malnutrition; K85.90 Acute pancreatitis without necrosis or infection, unspecified; K70.30 Alcoholic cirrhosis of liver without ascites; B18.2 Chronic viral hepatitis C; R00.1 Bradycardia, unspecified; E83.42 Hypomagnesemia; E11.9 Type 2 diabetes mellitus without complications; R74.0 Nonspecific elevation of levels of transaminase and lactic acid dehydrogenase [LDH]; F10.21 Alcohol dependence, in remission; Z68.27 Body mass index [BMI] 27.0-27.9, adult; Z79.84 Long term (current) use of oral hypoglycemic drugs; Z87.891 Personal history of nicotine dependence
CPT/HCPCS: 82962; 83880; 84439; G0480; J3475; J7030; Q0092